=== PATIENT | female | born 2005 | race Caucasian/White ===

== ENCOUNTER 2025-01-18 06:48 | Day surgery (SDC) | payer BC, SELFPAY ==
[2025-01-18] VITALS (8 sets, daily range): BP systolic 110–134; BP diastolic 67–88; BMI 20.6; BMI 19.9
--- NOTE | 2025-01-18 01:02 | ED.GENMED ---
History of Present Illness
<Jacob Portillo MD - Last Filed: 01/18/25 02:15>
General
Chief Complaint: Abdominal Pain
Source: patient
Exam Limitations: none
Time Seen by Provider: 01/18/25 00:38
Nursing documentation reviewed up to this point in time: agreed with
History of Present Illness
History of Present Illness:
19-year-old female with no reported chronic medical issues presents to the ER for evaluation of abdominal pain. Patient reports onset of symptoms this morning and they have been constant all day, worse over the past hour. She reports diffuse pain
worst in the right lower quadrant. She denies any associated nausea or vomiting. She denies any diarrhea or constipation. She denies any dysuria, hematuria, change in frequency. She denies any heavy vaginal bleeding although she reports some
spotting recently�she says that she will sometimes get irregular spotting when she misses a few days of her control pill which she did recently. She denies any fever. She denies any other acute complaints. No similar symptoms in the past.
Denies prior abdominal surgeries.
Review of Systems
<Jacob Portillo MD - Last Filed: 01/18/25 02:15>
Review of Systems
All Other Systems: ROS reviewed and negative except as documented in HPI and ROS
Constitutional: Denies fever or chills
Respiratory: Denies trouble breathing
Cardiac: Denies chest pain
ABD/GI: Reports abdominal pain; Denies nausea, vomiting, diarrhea or constipated
: Denies dysuria, frequency, flank pain or bleeding
Musculoskeletal: Denies neck pain or back pain
Neurological: Denies headache
Phy Exam
<Jacob Portillo MD - Last Filed: 01/18/25 02:15>
Physical Exam
Physical Exam:
General: Awake, alert, oriented x3; no acute distress
Head: Normocephalic, atraumatic
Eyes: Conjunctiva normal, sclera anicteric
Throat: Airway intact, handling secretions
Neck: Trachea midline, supple without meningismus
Lungs: Clear to auscultation bilaterally, no wheezing, rales, rhonchi
Heart: Regular rate and rhythm, no murmurs, gallops, or rubs
Abd: Soft, non distended, markedly tender in the right lower quadrant with voluntary guarding
Neuro: Grossly intact
Skin: no rash in area of concern
Extremities: Warm and well-perfused
Scores
<Jacob Portillo MD - Last Filed: 01/18/25 02:15>
Heart Failure Risk
Heart Failure Risk Score: Not Applicable
Heart Score for Chest Pain Patients
STEMI patient?: Not applicable
Withdrawal Assessment of Alcohol
Withdrawal Assessment Completed?: Not applicable
Course
<Jacob Portillo MD - Last Filed: 01/18/25 02:15>
Orders/Labs/Results
Orders:
Orders
01/18/25 00:49
Test Result ONCE
01/18/25 00:57
CT Abd/pel W Iv And Oral Contr Urgent
Comment:
Reason For Exam: RLQ abd pain
Iohexol [Omnipaque] See Protocol PO NOW STA
Ketorolac [Toradol] 15 mg IV NOW STA
US Pelvis W Transvag Combined Urgent
Comment:
Reason For Exam: RLQ abd pain
01/18/25 00:58
0.9% Sodium Chloride 500 ml [Nss] 500 ml IV BOLUS
01/18/25 01:00
Complete Blood Count/With Diff Urgent
Comprehensive Metabolic Panel Urgent
HCG, Serum Qualitative Screen Urgent
Lipase Urgent
01/18/25 01:08
Urinalysis Reflex To Culture Urgent
Date Specimen was Collected: 01/18/25
Time Specimen was Collected: 01:01
Urine Microscopic Reflex Cult Urgent
Urine Culture Urgent
JOSE Source: U
Specimen Description:
Date Specimen was Collected: 01/18/25
Time Specimen was Collected: 01:01
01/18/25 Breakfast
NPO
Allow oral meds: No
Allow clear liquids: No
NPO with Ice Chips: No
01/18/25 06:18
Admit/Transfer Patient As Directed
Co-Sign Provider:
Level of Care: Observation services
Assign to:: Medical/Surgical
Physician / Group: [facility]/General Surgery Service
Diagnosis: appendicitis
01/18/25 06:19
Code Status As Directed
Resuscitation Status: Full Code
PRN Pain Medication Management As Directed
May give lesser potent ordered pain med per pt: Yes
preference::
Protocol:: Medication orders for pain may be administered in a
manner that supports deferring to patient preference
when the pt is:
- Requesting an ordered lesser potent pain medication.
Least to most potent pain medications are defined
as: acetaminophen < NSAID < tramadol < opioids
(morphine, oxycodone, hydromorphone).
- Requesting a lesser dose of the same medication IF
ORDERED.
- Requesting a less intrusive route of administration
if both routes are prescribed by the provider (PO <
IV).
01/18/25 07:56
0.9% Sodium Chloride 1000 ml [Nss] 1,000 ml IV 60 mls/hr
Morphine Sulfate 2 mg IV Q2HPRN PRN
Ondansetron Injectable [Zofran] 4 mg IV Q6HPRN PRN
01/18/25 07:56
Activity As Directed
Activity Level: Ambulate
Anti-embolism (MIKE) Hose As Directed
Type: Thigh high
Intake/ Output As Directed
Frequency: Per unit guidelines
Pneumatic Compression Sleeves As Directed
Type: Thigh high
Vital Signs As Directed
Frequency: Per unit guidelines
DX Deep Vein Thrombosis Video Routine
Abnormal Lab Results
01/18/25 01/18/25
01:00 01:08
Lymphocytes % 18.1 L %
(20.5-51.1)
Glucose 105 H mg/dl
(70-99)
Ur Occult Blood Reflex 2+ A
(Negative)
Urine WBC (Reflex) 16-20 A /HPF
(0-5)
Urine Bacteria (Reflex) Many A
(Negative)
Urine Albumin (Reflex) 1+ A
(Neg - Trace)
01/18/25 01:00
01/18/25 01:00
Vital Signs
Initial and Last Documented VS:
Initial Vital Signs
Temp Pulse Resp BP Pulse Ox
98.4 F 95 20 134/88 98
01/18/25 00:27 01/18/25 00:27 01/18/25 00:27 01/18/25 00:27 01/18/25 00:27
Last Documented Vital Signs
Temp Pulse Resp BP Pulse Ox
98.1 F 63 16 114/69 99
01/18/25 13:30 01/18/25 13:30 01/18/25 13:30 01/18/25 13:30 01/18/25 13:30
<Jason Funez MD - Last Filed: 01/18/25 13:46>
Orders/Labs/Results
Orders:
Orders
01/18/25 00:49
Test Result ONCE
01/18/25 00:57
CT Abd/pel W Iv And Oral Contr Urgent
Comment:
Reason For Exam: RLQ abd pain
Iohexol [Omnipaque] See Protocol PO NOW STA
Ketorolac [Toradol] 15 mg IV NOW STA
US Pelvis W Transvag Combined Urgent
Comment:
Reason For Exam: RLQ abd pain
01/18/25 00:58
0.9% Sodium Chloride 500 ml [Nss] 500 ml IV BOLUS
01/18/25 01:00
Complete Blood Count/With Diff Urgent
Comprehensive Metabolic Panel Urgent
HCG, Serum Qualitative Screen Urgent
Lipase Urgent
01/18/25 01:08
Urinalysis Reflex To Culture Urgent
Date Specimen was Collected: 01/18/25
Time Specimen was Collected: 01:01
Urine Microscopic Reflex Cult Urgent
Urine Culture Urgent
JOSE Source: U
Specimen Description:
Date Specimen was Collected: 01/18/25
Time Specimen was Collected: 01:01
01/18/25 Breakfast
NPO
Allow oral meds: No
Allow clear liquids: No
NPO with Ice Chips: No
01/18/25 06:18
Admit/Transfer Patient As Directed
Co-Sign Provider:
Level of Care: Observation services
Assign to:: Medical/Surgical
Physician / Group: [facility]/General Surgery Service
Diagnosis: appendicitis
01/18/25 06:19
Code Status As Directed
Resuscitation Status: Full Code
PRN Pain Medication Management As Directed
May give lesser potent ordered pain med per pt: Yes
preference::
Protocol:: Medication orders for pain may be administered in a
manner that supports deferring to patient preference
when the pt is:
- Requesting an ordered lesser potent pain medication.
Least to most potent pain medications are defined
as: acetaminophen < NSAID < tramadol < opioids
(morphine, oxycodone, hydromorphone).
- Requesting a lesser dose of the same medication IF
ORDERED.
- Requesting a less intrusive route of administration
if both routes are prescribed by the provider (PO <
IV).
01/18/25 07:56
0.9% Sodium Chloride 1000 ml [Nss] 1,000 ml IV 60 mls/hr
Morphine Sulfate 2 mg IV Q2HPRN PRN
Ondansetron Injectable [Zofran] 4 mg IV Q6HPRN PRN
01/18/25 07:56
Activity As Directed
Activity Level: Ambulate
Anti-embolism (MIKE) Hose As Directed
Type: Thigh high
Intake/ Output As Directed
Frequency: Per unit guidelines
Pneumatic Compression Sleeves As Directed
Type: Thigh high
Vital Signs As Directed
Frequency: Per unit guidelines
DX Deep Vein Thrombosis Video Routine
Abnormal Lab Results
01/18/25 01/18/25
01:00 01:08
Lymphocytes % 18.1 L %
(20.5-51.1)
Glucose 105 H mg/dl
(70-99)
Ur Occult Blood Reflex 2+ A
(Negative)
Urine WBC (Reflex) 16-20 A /HPF
(0-5)
Urine Bacteria (Reflex) Many A
(Negative)
Urine Albumin (Reflex) 1+ A
(Neg - Trace)
01/18/25 01:00
01/18/25 01:00
Vital Signs
Initial and Last Documented VS:
Initial Vital Signs
Temp Pulse Resp BP Pulse Ox
98.4 F 95 20 134/88 98
01/18/25 00:27 01/18/25 00:27 01/18/25 00:27 01/18/25 00:27 01/18/25 00:27
Last Documented Vital Signs
Temp Pulse Resp BP Pulse Ox
98.1 F 63 16 114/69 99
01/18/25 13:30 01/18/25 13:30 01/18/25 13:30 01/18/25 13:30 01/18/25 13:30
<Jacob Portillo MD - Last Filed: 01/18/25 02:15>
MDM/Problems Addressed
Differential Diagnosis Includes:
Appendicitis, ovarian cyst, nephrolithiasis, UTI, mesenteric adenitis
MDM/Problems Addressed:
19-year-old female presents with abdominal pain worse in the right lower quadrant started this morning worsening this evening. Vitals and exam as above. Plan to check labs including CBC and CMP, hCG. Check urinalysis. Will check CT abdomen
pelvis, pelvic ultrasound. Fluids and pain control. Reassess at the above.
Labs reviewed: CBC unremarkable, CMP no clinically significant abnormalities. hCG negative. Her urinalysis is contaminated�unlikely to represent acute infection especially in the absence of urinary symptoms. Pelvic ultrasound negative for ovarian
cyst, no signs of torsion. Awaiting results of CT.
<Jacob Portillo MD - Last Filed: 01/18/25 02:15>
*Radiology
Radiology exam reviewed: radiology read reviewed
*Pulse Oximetry
SaO2: 98
Oxygen Mode of Delivery: Room air
Patient hypoxic: no (98%)
*Critical Care Note
Total Time (30-74mins, 75-104mins- exclusive of procedures): Not Applicable
Data Reviewed
Source: patient and family
<Jason Funez MD - Last Filed: 01/18/25 13:46>
Update Note
Update Note:
CT abd/pel report reviewed and discussed with patient and family. On repeat abd exam, pt continues to have RLQ tenderness to palpation
Discussed with (surgery) - will admit patient for further evaluation and treatment.
ED Attending Note
<Jacob Portillo MD - Last Filed: 01/18/25 02:15>
-
Portions of this chart may have been created with voice recognition software.� Occasional wrong word or��sound alike� substitutions may have occurred due to the inherent limitations of voice recognition software.
Discharge Plan
Departure
Patient Disposition: Admit
Date of Disposition: 01/18/25
Time of Disposition: 05:48
Presentation/result/management discussed w/ accepting MD/DO: Hospitalist
Discharge Problem:
Abdominal pain
Interventions
Interventions:
*Risk Screen - Suicide Last Done: 01/18/25 00:27
*General Assessment Last Done: 01/18/25 00:27
*Neglect/Abuse Screening Last Done: 01/18/25 00:27
*ED- Fall Risk Assessment Last Done: 01/18/25 01:00
*ED COVID-19 Vaccine History Last Done: 01/18/25 01:00
*ED Influenza Vaccine History Last Done: 01/18/25 01:00
*Nursing Disposition Last Done: 01/18/25 07:25
TE-Yoqbld-Crntpyjody Assessment Last Done: 01/18/25 01:01
Discharge Date and Time
Discharge Date/Time: 01/18/25 07:25
[2025-01-18] MEDS: TORADOL 15 MG IV ×2 (01:05→13:12)
[2025-01-18] MEDS: OMNIPAQUE 50 ML PO (01:06)
[2025-01-18] MEDS: NSS 500 IV (01:06)
[2025-01-18 01:07] LABS: Hematocrit 38.2 % (37.0-47.0); Hemoglobin 12.7 g/dL (12.0-16.0); Mean Corp Hgb Conc. 33.2 g/dL (33.0-37.0); Mean Corpuscular Volume 89.3 fL (81.0-99.0); Nucleated Red Blood Cells % 0 %; Platelet Count 259 10^3/uL (130-400); Red Cell Dist. Width 13.0 % (11.5-14.5)
[2025-01-18 01:18] LABS: HCG, Serum Qualitative Screen Negative
[2025-01-18 01:18] LABS: Urine Character Clear (Clear)
[2025-01-18 01:21] LABS: ALT (SGPT) 14 U/L (0-35); AST (SGOT) 20 U/L (14-36); Albumin 4.5 g/dl (3.5-5.0); Alkaline Phosphatase 61 U/L (38-126); Blood Urea Nitrogen 9 mg/dl (7-17); Calcium 9.2 mg/dl (8.4-10.2); Carbon Dioxide 26 mmol/L (22-30); Chloride 101 mmol/L (98-107); Estimated Creatinine Clearance > 125 ml/min; Glucose 105 mg/dl (70-99); Lipase 55 U/L (23-300); Potassium 3.9 mmol/L (3.5-5.1); Sodium 135 mmol/L (135-145); Total Protein 7.2 g/dl (6.3-8.2); eGFR > 60.00
[2025-01-18 01:26] LABS: Urine Squamous Cell >30 /LPF (Few)
[2025-01-18 01:27] LABS: Urine Red Blood Cell 0-2 /HPF (0-2)
[2025-01-18 01:28] LABS: Urine White Cell 16-20 /HPF (0-5)
--- NOTE | 2025-01-18 05:58 | HPS.HSE ---
Family Physician
-
Family Physician: Megan Phan
Chief Complaint
-
abdominal pain
History of Present Illness
This is a very pleasant 19 year old female who comes to the ED with abdominal pain which began in the morning yesterday becoming increasingly worse throughout the day settling in the RLQ. She denies n/v/d, dysuria or trauma to the area. Periods are
usually regular and she takes control monthly as scheduled but admits to occasionally missing doses recently which caused spotting. No significant PMH or PSH. No other medications taken on a regular basis.
Medical History
Past Medical History
Past Medical History: Reports None
Past Surgical History: Reports None
Social History
Tobacco: Non-smoker
Alcohol: None
Drug: None
Personal: Single
Living: With Family
Family History
Family History: Not pertinent
Allergies / Home Medications
Allergies reflects when Allergies were last updated in [facility].
Home Medications with original date entered in [facility]
Allergy/Medication List:
Allergies
Allergy/AdvReac Type Severity Reaction Status Date / Time
No Known Allergies Allergy Unverified 01/18/25 00:30
Review of Systems
-
Constitutional: Reports No Symptoms
EENT: Reports No Symptoms
Respiratory: Reports No Symptoms
Cardiac: Reports No Symptoms
Abdomen/GI: Reports Abdominal Pain
: Reports No Symptoms
Musculoskeletal: Reports No Symptoms
Skin: Reports No Symptoms
Neurological: Reports No Symptoms
Endocrine: Reports No Symptoms
Hematologic/Lymphatic: Reports No Symptoms
Psych: Reports No Symptoms
Physical Exam
Vital Signs
Vital Signs
Temp Pulse Resp BP Pulse Ox
98.4 F 95 20 134/88 98
01/18/25 00:27 01/18/25 00:27 01/18/25 00:27 01/18/25 00:27 01/18/25 01:05
Physical Exam
General: Well Developed, Well Nourished and Comfortable
HEENT: NormoCephalic, Moist mucous membranes, Atraumatic and PERRLA
Respiratory: Clear and Non Labored Respirations
Cardiac: Regular Rhythm
Breast: Deferred by me
GI: Soft, Non Distended and Tender (RLQ)
Rectal: Deferred by Provider
Genito-urinary: Clear Urine
Musculoskeletal: No Clubbing, No Cyanosis and No Edema
Skin: Warm and Dry
Neuro: Awake, Alert, AO x 3, No Motor Deficits and Nonfocal/grossly intact
Hematologic/Lymphatic: No Lymphadenopathy
Psych: Calm
Laboratory Results
-
01/18/25 01:00
01/18/25 01:00
Laboratory Results
Total Bilirubin 0.3 mg/dl (0.2-1.3) 01/18/25 01:00
AST 20 U/L (14-36) 01/18/25 01:00
ALT 14 U/L (0-35) 01/18/25 01:00
Alkaline Phosphatase 61 U/L (38-126) 01/18/25 01:00
Lipase 55 U/L (23-300) 01/18/25 01:00
Data Reviewed
-
CT Scan: Report Reviewed by me
Ultrasound: Report Reviewed by me
Lab Data: Labs Reviewed by me
Old Records: Reviewed
Impression/Plan
-
IMPRESSION: RLQ abdominal pain consider very early appendicitis
PLAN: This is a very pleasant 19 year old female who comes to the ED with abdominal pain which began in the morning yesterday becoming increasingly worse throughout the day settling in the RLQ. She denies n/v/d, dysuria or trauma to the area.
Periods are usually regular and she takes control monthly as scheduled but admits to occasionally missing doses recently which caused spotting. No significant PMH or PSH. No other medications taken on a regular basis.
* RLQ abdominal pain: NPO, pain control
* DVT prophylaxis: Ambulate, SCDs
*Disposition: FC. General surgery service. observation
--- NOTE | 2025-01-18 08:00 | PTCARENOTE ---
Received patient from ED via stretcher accompanied by S/O and parent. Patient ambulated to bed without difficulty. Awaiting surgery c/s. NPO at this time, meds given as per order - see MAR.
~1030 Patient taken to OR via bed accompanied by transport. Report given.
[2025-01-18] MEDS: ZOSYN 50 IV ×2 (08:14→13:13)
[2025-01-18] MEDS: NSS 1000 IV (08:14)
--- NOTE | 2025-01-18 10:01 | CM ---
Addendum entered by Adenike Munoz 01/18/25 12:07:
Discharge to home today; no needs; mother will transport home
Original Note:
Met with patient and mother at bedside
Observation Notice explained and signed
Lives w/ parents; multilevel home; on college break; 2nd floor bath has tub w/ shower
Independent with ambulation, stairs, and ADLs; drives; No DME
Mother will transport home
Plan: Discharge to home when medically stable; Relief Salesperson will monitor for disposition needs
--- NOTE | 2025-01-18 10:15 | PTCARENOTE ---
Patient admitted from ED to room 2106, ambulated to bed without difficulty. Family and SO present at bedside. Meds given as per order, see MAR. Surgeon at bedside, OR given report, CHG wipes done x1. 20 L AC patent and intact. VSS, call guillen within
reach, care ongoing.
--- NOTE | 2025-01-18 10:39 | PTCARENOTE ---
Sent to OR with SCD in place, verified with phone call to OR. No TEDS present 2/2 availability.
--- NOTE | 2025-01-18 12:00 | OR.RPT ---
Operative Report
Operative Report
Primary Surgeon: Kane
Pre-op Diagnosis: Acute appendicitis
Post-op Diagnosis: Same
Procedure Performed: Laparoscopic appendectomy
Anesthesia Type: GETA
Specimen / Cultures: Appendix
Estimated Blood Loss: 15cc
Complications: None immediate
Operative Findings: Mildly inflamed turgid appendix without signs of perforation or purulence
Date of Surgery: 01/18/25
Indications: This 19F developed right lower quadrant abdominal pain and on workup was found to have acute appendicitis. Laparoscopic appendectomy was elected.
Description of procedure: The patient was placed on the operating table in the supine position. General anesthesia was induced. A time-out was completed verifying correct patient, procedure, site, positioning, and special equipment prior to
beginning this procedure. An orogastric tube was placed. The abdomen was prepped and draped in the usual sterile fashion. A stab incision was made in left upper quadrant and the Veress needle was inserted. Proper position was confirmed by aspiration
and saline meniscus test. The abdomen was insufflated with carbon dioxide to a pressure of 12 mmHg. The patient tolerated insufflation well.
A 5mm optical trocar was then inserted at the left lower quadrant. The laparoscope was inserted and the abdomen inspected. No injuries from initial trocar placement or Veress needle insertion were noted. Additional trocars were then inserted in the
following locations: a 12-mm trocar at the umbilicus and a 5-mm trocar midline in the suprapubic space. The abdomen was inspected and no abnormalities were found. The table was placed in the Trendelenburg position with the right side up. The tip of
the appendix was gently grasped with an atraumatic grasper and retracted toward the patient�s feet and abdominal wall. This maneuver exposed the appendiceal blood supply which was controlled with the Ligasure device. Following this, a laparoscopic
linear cutting stapler with a 45mm batres load was deployed and used to transect the appendix at its base. The appendix was placed in an endoscopic retrieval bag, removed through the umbilical port, and passed off the table as a specimen.
We then turned our attention to the staple line, which was noted to be hemostatic. Scant turbid fluid was suctioned from the pelvis. The umbilical trocar site was closed at the fascial level laparoscopically with 2-0 PDS under direct vision.
Secondary trocars were removed under direct vision and noted to be hemostatic. The laparoscope was withdrawn and the abdomen was allowed to collapse. The skin was closed with subcuticular sutures of 4-0 monocryl and topical skin adhesive. The
orogastric tube was removed.
The patient tolerated the procedure well and was taken to the postanesthesia care unit in stable condition.
--- NOTE | 2025-01-18 12:28 | PTCARENOTE ---
Patient arrived from PACU via hospital bed accompanied by NETWORKING ADMINISTRATOR's. x4 lap sites to abdomen - CDI. Diet ordered. Patient tolerating ice chips. VSS, call guillen within reach, care ongoing.
--- NOTE | 2025-01-18 12:30 | W.DCSUMMARY ---
Discharge Summary
Discharge Data
Date of Admission: 01/18/25
Date of Discharge: 01/18/25
-
Pending Results: No
Discharge Plan
-
Patient Disposition: Home (Routine Discharge)
Discharge Diagnosis/Procedures: Appendicitis status post laparoscopic appendectomy
Diet: As tolerated
Additional Diets: Eat small meals at first as bloating is common
Activity: No strenuous activity
Additional Activity: Do not lift over 15-20lbs for the next 2-3 weeks
Driving Restrictions: No driving for 24 hours
Bathing Restrictions: OK to Shower
Wound Care: Glue will flake off your incisions over the next 2-3 weeks. Avoid swimming or soaking in tubs/pools for one week.
Activity Restrictions/Additional Instructions:
Call your surgeon if you have worsening pain, fevers >100.5, or nausea with vomiting
Referrals:
Megan Phan MD [Family Provider, Internal Medicine]
Pawel Middleton MD [Active, Surgical] - in two to three weeks
Prescriptions:
New
acetaminophen [acetaminophen] 325 mg tablet
650 mg PO Q4HPRN PRN (Reason: mild pain) Qty: 1 0RF
ibuprofen 200 mg tablet
400 - 600 mg PO Q6HPRN PRN (Reason: moderate pain) Qty: 1 0RF
oxycodone 5 mg tablet
5 mg PO Q4HPRN PRN (Reason: breakthrough/severe pain) Qty: 5 0RF
Discharge Orders:
Discharge Patient (As Directed); Ordered 01/18/25
Ordered By: Mindi Severino
Discharge Date and Time
Print Language: TURKMEN
[2025-01-18] MEDS: TYLENOL 1000 MG PO (14:52)
== END 2025-01-18 16:09 | disposition home or self-care (01) ==
LOC: SDS 06:48
PROVIDERS: ATTENDING PHYSICIAN Surgery; EMERGENCY PHYSICIAN Emergency Medicine; FAMILY PHYSICIAN Internal Medicine
DX: K35.890 Other acute appendicitis without perforation or gangrene (principal)
CPT/HCPCS: 44970; 74177; 76830; 76856; 80053; 81003; 81015; 83690; 84703; 85025; 87086; 88304; 96361; 96374; 99285; G0378; Q9967